=== PATIENT | male | born 1935 | race Caucasian/White ===

== ENCOUNTER 2021-02-24 12:37 | Emergency (ER) | payer OTHER ==
[~2021-02-24] VITALS: Ht 167.6 cm; Wt 74.8 kg
[~2021-02-24 12:37] MED LIST: INTEGRA PLUS CAPSULE PO; OXYC1TAB9 PO; XARELTO10 MG PO
[2021-02-24] MEDS ORDERED: MOBIC7.5 MG (12:55)
[2021-02-24] MEDS ORDERED: AMLODIPINE-OLM1 EAC2 PO (12:55)
[2021-02-24] MEDS ORDERED: ECOTRIN325 M1 PO (12:56)
[2021-02-24] MEDS ORDERED: TAMS0.4C PO (12:56)
[2021-02-24] MEDS ORDERED: SIMVASTATIN5 MG PO (12:56)
[2021-02-24] MEDS ORDERED: CENTRUM SILVER1 EAC1 PO (12:57)
[2021-02-24] MEDS ORDERED: CELEBREX100 MG PO (16:11)
[2021-02-24] MEDS ORDERED: CYCLOBENZAPRINE10 MG PO (16:11)
== END 2021-02-24 16:13 | disposition home or self-care (01) ==
LOC: ER 12:37
DX: M62.830 Muscle spasm of back (principal); M54.2 Cervicalgia; M54.5 Low back pain; R10.2 Pelvic and perineal pain

== ENCOUNTER 2023-04-18 12:34 | Outpatient (CLI) | payer OTHER ==
[~2023-04-18 12:34] MED LIST changes: +AMLODIPINE-OLM1 EAC2 PO; +CELEBREX100 MG PO; +CENTRUM SILVER1 EAC1 PO; +CYCLOBENZAPRINE10 MG PO; +ECOTRIN325 M1 PO; +MOBIC7.5 MG; +SIMVASTATIN5 MG PO; +TAMS0.4C PO
== END 2023-04-18 12:37 | disposition home or self-care (01) ==
LOC: NUCLEAR 12:34
PROVIDERS: ATTEND Internal Medicine Hematology & Oncology
DX: D47.1 Chronic myeloproliferative disease (principal); D47.3 Essential (hemorrhagic) thrombocythemia; R18.0 Malignant ascites
CPT/HCPCS: 78215; A9541

== ENCOUNTER 2023-07-10 03:33 | Emergency (ER) | payer OTHER ==
[~2023-07-10] VITALS: Ht 165.1 cm; Wt 72.6 kg
== END 2023-07-10 09:13 | disposition home or self-care (01) ==
LOC: ER 03:33
DX: K59.01 Slow transit constipation (principal)